=== PATIENT | female | born 2000 | race Caucasian/White ===

== ENCOUNTER 2022-03-25 08:35 | Emergency (ER) | payer MEDICAID, SELFPAY ==
[2022-03-25 08:44] VITALS: BP 138/85; PULSE 93; RESP 12; TEMP 36.6; O2SAT 97; BMI 25.2
--- NOTE | 2022-03-25 08:53 | PC.NURSE ---
Patient states that she took 2 tests, both were positive then she had bleeding. Patient states when she sits on bed then it will gush out. 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 LMP February 21.
--- NOTE | 2022-03-25 08:59 | W.ED.FEMALGU ---
HPI - Female Genitourinary General: Chief complaint: Vaginal Bleeding Stated complaint: vag bleeding, postive Time Seen by Provider: 03/25/22 08:37 Source: patient Mode of arrival: ambulatory Limitations: no limitations History of Present Illness: Patient is a 21-year-old presumed female here for concerns of vaginal bleeding/possible miscarriage. Patient states she had 3 positive home tests over the past few days. Patient states yesterday she began having some vaginal bleeding and states she soaked one pad during a 24-hour period. Patient states bleeding has further lightened into today. She is having some very mild pelvic cramping. Patient states her 2 previous miscarriages were at roughly 6 and 9 weeks. She states LMP was 02/21/22 and date of conception would be mid February thus placing her at roughly 4 weeks today. Denies vaginal discharge/odor. Patient is originally from [place] and here visiting family. MD elicited complaint: vaginal bleeding, possible miscarriage and suspected Pertinent past history: prior miscarriages Onset (ago): day(s) (yesterday) Severity: mild Quality of pain: cramping Consistency: improved Vaginal discharge: none Vaginal bleeding: scant Exacerbating factors: none Relieving factors: none Associated symptoms: Deny abdominal pain, nausea, syncope or vaginal discharge Sexual activity: Yes Possible : unsure if and at home test positive Date of Last Menstrual Period: 02/21/22 Related Data: : 3 Para: 0 Total number of abortions (spontaneous and elective): 2 Review of Systems Const: Denies: fever(s), chills, body aches, fatigue or malaise Eyes: Denies: change in vision or blurry vision Card: Denies: palpitations, lightheadedness, syncope or pre-syncope GI: Denies: abdominal pain, nausea, vomiting, diarrhea or change in bowel habits : Reports: vaginal bleeding and pelvic pain (slight cramping); Denies: flank pain, dysuria, hematuria, vaginal odor or vaginal discharge Musc: Denies: neck pain, back pain, extremity pain or joint pain Skin/Breast: Denies: rash Neuro: Denies: dizziness [facility] Female Reproductive History: Date of last menstrual period: 02/21/22 : 3 Physical Exam Const: COMMON NORMALS: no acute distress, average body habitus, patient oriented x3, no limitations, healthy appearing, alert and well nourished ORIENTATION/CONSCIOUSNESS: Yes awake, Yes oriented to person, Yes oriented to place and Yes oriented to time Resp: COMMON NORMALS: normal respiratory effort and clear to auscultation bilaterally AUSCULTATION: clear to auscultation bilaterally Cardio: COMMON NORMALS: regular rate and regular rhythm RATE: regular rate RHYTHM: regular rhythm GI: COMMON NORMALS: Normal to inspection, nondistended, normoactive bowel sounds present, Soft to palpation, non-tender, No hepatosplenomegaly present and no masses PALPATION: Yes Soft to palpation and Yes No hepatosplenomegaly present : COMMON NORMALS: Yes no CVA tenderness BLADDER/KIDNEY EXAM: Yes no CVA tenderness Back/Pelvis: COMMON NORMALS: no CVA tenderness Neuro: COMMON NORMALS: patient oriented x3 SENSORIUM/ORIENTATION: Yes alert, Yes oriented to person, Yes oriented to place and Yes oriented to time Course Vital Signs: Vital signs: Vital Signs Temperature 98 F 03/25/22 08:44 Pulse Rate 93 03/25/22 08:44 Respiratory Rate 12 03/25/22 08:44 Blood Pressure 138/85 03/25/22 08:44 Pulse Oximetry 97 03/25/22 08:44 MDM - Female Medical Decision Making hcg quant was 0.50. Patient is stable for DC home at this time. Lab Data : 03/25/22 09:07 Laboratory Results WBC 4.5 10^3/uL (4.5-13.0) 03/25/22 09:07 RBC 4.69 10^6/uL (4.1-5.3) 03/25/22 09:07 Hgb 14.5 g/dL (11.5-15.3) 03/25/22 09:07 Hct 42.2 % (37.0-47.0) 03/25/22 09:07 MCV 90.0 fl (81-99) 03/25/22 09:07 MCH 30.9 pg (28.0-34.0) 03/25/22 09:07 MCHC 34.4 g/dL (30.0-36.0) 03/25/22 09:07 RDW 12.6 % (12.1-15.1) 03/25/22 09:07 Plt Count 200 10^3/cmm (130-400) 03/25/22 09:07 MPV 10.1 fL (7.4-10.4) 03/25/22 09:07 Neut % (Auto) 50.9 % 03/25/22 09:07 Lymph % (Auto) 36.8 % 03/25/22 09:07 [place] % (Auto) 7.0 % 03/25/22 09:07 Eos % (Auto) 4.2 % 03/25/22 09:07 Baso % (Auto) 0.9 % 03/25/22 09:07 Neut # (Auto) 2.31 10^3/uL (1.8-8.0) 03/25/22 09:07 Lymph # (Auto) 1.7 10^3/uL (1.5-6.5) 03/25/22 09:07 [place] # (Auto) 0.3 10^3/uL (0.2-0.9) 03/25/22 09:07 Eos # (Auto) 0.2 10^3/uL (0.0-0.8) 03/25/22 09:07 Baso # (Auto) 0.0 10^3/uL (0.0-0.1) 03/25/22 09:07 Nucleated RBC % (auto) 0 % 03/25/22 09:07 Nucleated RBCs # 0.0 /100WBC 03/25/22 09:07 Ser , Semi-Qnt 0.50 mIU/mL 03/25/22 09:07 Discharge Plan Discharge Patient Disposition: Home Clinical Impression: Vaginal bleeding Condition: Stable Prescriptions: No Action Tylenol Ex Str Rapid Release 500 mg Tablet 500 mg PO Q6H PRN (Reason: Pain) 0RF Discharge Orders: Discharge ED (Routine); Ordered 03/25/22 Ordered By: Rosy Pickard Coding Level of Care Code ED Community Relations Coordinator for Chg Fwd Exam Detailed
[2022-03-25 09:14] LABS: Basophils % 0.9 %; Eosinophils # 0.2 10^3/uL (0.0-0.8); Eosinophils % 4.2 %; Hematocrit 42.2 % (37.0-47.0); Hemoglobin 14.5 g/dL (11.5-15.3); Lymphocytes # 1.7 10^3/uL (1.5-6.5); Lymphocytes % 36.8 %; Mean Corpuscular HGB Conc 34.4 g/dL (30.0-36.0); Mean Corpuscular Hemoglobin 30.9 pg (28.0-34.0); Mean Platelet Volume 10.1 fL (7.4-10.4); Monocytes # 0.3 10^3/uL (0.2-0.9); Neutrophils # 2.31 10^3/uL (1.8-8.0); Neutrophils % 50.9 %; Nucleated Red Blood Cells % 0 %; Platelet Count 200 10^3/cmm (130-400); Red Blood Count 4.69 10^6/uL (4.1-5.3); Red Cell Distribution Width 12.6 % (12.1-15.1); White Blood Count 4.5 10^3/uL (4.5-13.0)
--- NOTE | 2022-03-25 09:24 | PC.PHAR ---
ext med history shows an albuterol inhaler filled 03/29/2021 pt states she no longer uses-pt states she takes no rx medications
[2022-03-25 10:12] VITALS: BP 130/78; PULSE 58; RESP 16; O2SAT 100
== END 2022-03-25 10:14 | disposition home or self-care (01) ==
PROVIDERS: Emergency Provider Physician Assistant
DX: N93.9 Abnormal uterine and vaginal bleeding, unspecified (principal)
CPT/HCPCS: 84702; 85025; 99282